=== PATIENT | female | born 1970 | race Caucasian/White ===

== ENCOUNTER 2025-06-04 07:28 | Outpatient (OUT) | payer BC, SELFPAY ==
--- OUTSIDE RECORDS SUMMARY | 2024-04-23 04:15 | XMS_ITS | Continuity of Care Document ---
Author Organization [facility] Address [address] [place] [address] Phone Care Team Providers Care Sed High School Teacher Name Role Phone eJffrey Fountain Unavailable Unavailable Procedures Procedure Date IMMUNIZATION ADMIN Smallpox And Monkeypox Vaccine .05 ML Oc t IMMUNIZATION ADMIN Smallpox And Monkeypox Vaccine .05 ML Se p IMMUNIZATION ADMIN Zoster Vaccine, Recombinant,subunit IMMUNIZATION ADMIN Zoster Vaccine, Recombinant,subunit IMMUNIZATION ADMIN, EACH ADD TYPHOID VACCINE, IM IMMUNIZATION ADMIN POLIOVIRUS, IPV, SC/IM UDS Exempt IMMUNIZATION ADMIN TDAP VACCINE >7 IM UDS Exempt IMMUNIZATION ADMIN TYPHOID VACCINE, IM IMMUNIZATION ADMIN TYPHOID VACCINE, IM Advance Directives Directive Yes / No Effective Date File Name No Information Encounters Encounter Description Practice Location Reason(s) For Visit Diagnoses Date Provider Providers Copied on Encounter [facility], [address], [place], [id number], [place] tel:[phone] [facility] No Information Trisha Brown. [address] [place] [address], [id number], [place]. tel:[phone] [facility], [address], [place], [id number], [place] tel:[phone] [facility] No Information Viscjose e Brown. [address], [place], [id number], [place]. tel:[phone] [facility], [address] [facility] [place], [id number], [place] tel:[phone] [facility] No Information Viscjose e Brown. [address], [place], [id number], [place]. tel:[phone] [facility], [address], [place], [id number], [place] tel:[phone] [facility] No Information Trisha Brown. [address], [place], [id number], [place]. tel:[phone] [facility], [address], [place], [id number], [place] tel:[phone] [facility] No Information Trisha Brown. [address], [place], [id number], [place]. tel:[phone] [facility], [address], [place], [id number], [place] tel:[phone] [facility] No Information Trisha Brown. [address], [place], [id number], [place]. tel:[phone] [facility], [address], [place], [id number], [place] tel:[phone] [facility] No Information Viscjose e Brown. [address], [place], [id number], [place]. tel:[phone] Family History Family Member Type Diagnosis Age At Onset No Information Immunizations Vaccine Date Status Comments MPOX administered Source: New Imm unization Record MPOX administered Source: New Imm unization Record Zoster recombinant subunit, preservative free administered Source: New Immuniza tion Record Zoster recombinant subunit, preservative free administered Source: New Immuniza tion Record Typhoid administered Source: New Imm unization Record IPV administered Source: New Imm unization Record Tdap (Boostrix) administered Source: New Immunization Record Typhim Vi administered Source: New Imm unization Record Payers Payer name Insurance type Covered alliance party ID Authoriza tion(s) [employer] [id number] [employer] [id number] [employer] [id number] [employer] [id number] [employer] [id number] [employer] [id number] [employer] [id number] [employer] [id number] Social History Type Description Quantity Date Captured Comments Alcohol Use Details Unknown Caffeine Use Details Unknown Tobacco Use Status No Information Smoking Status No Information Sex Female Sexual Orientation Straight or heterosexual Gender Identity Female Chief Complaint And Reason For Visit No Information Reason For Referral Reason For Referral No Information Plan Of Treatment Date Type Action Status Goal Colonoscopy. Due on due Goal Lipid panel. Due on due Goal Tdap due Goal Zoster vaccine (2nd) due Goal Hepatitis C screening. Due o n due Goal Tdap Vaccine. Due on 2028 due Goal Unhealthy drug use screening . Due on due Goal Zoster vaccine (1st) due Goal CT-Colonography. Due on due Goal HPV. Due on due Goal Depression screening. Due on due Goal Hep A. Due on du e Goal FIT. Due on due Goal FOBT. Due on due Goal Influenza vaccine. Due on Oc due Goal FIT-DNA. Due on due Goal Mammogram. Due on due Goal PRAPARE ASSESSMENT. Due on O due Goal FIT. Due on due Goal Depression screening. Due on due Goal FOBT. Due on due Goal Tdap Vaccine. Due on 2028 due Goal Mammogram. Due on due Goal PRAPARE ASSESSMENT. Due on S due Goal CT-Colonography. Due on due Goal Zoster vaccine (1st) due Goal HPV. Due on due Goal Influenza vaccine. Due on Se due Goal Unhealthy drug use screening . Due on due Goal Lipid panel. Due on due Goal Colonoscopy. Due on due Goal FIT-DNA. Due on due Goal Hep A. Due on du e Goal Tdap due Goal Zoster vaccine (2nd) due Goal Hepatitis C screening. Due o n due History Of Present Illness Encounter Date Complaint History Of Prese nt Illness No Information Functional Status Date Functional Assessmen t No Information Instructions Date Instruction Additional Infor mation No Information Assessments Type Assessment Date No Information Patient Care Teams Name Effective Dates (start - stop) Status Members No Information
--- OUTSIDE RECORDS SUMMARY | 2025-05-29 08:45 | XMS_ITS ---
Author Organization [email or web address] Address [address] [address], [place] [address] Care Team Providers Care Beverage Host Name Role Phone Elia Marin Unavailable [phone] Allergies No Known Allergies REASON FOR VISIT Left Foot Pain Medications Medication SIG (Take, Route, Frequency, Duration) Notes Start Date End Date Status Motrin 5914YuwjmhLwzmntogghn19/20/2025ActiveVitamin D35Active Social History Section Notes: Works at [employer] Nonsmoker Encounters Encounter Location Date Provider Diagnosis [facility] [address] [address], [place] [address] 05/29/2025 Elia Marin Nondisplaced fracture of navicular [scaphoid] of left foot, initial encounter for closed fracture S92.255A ; Spontaneous rupture of flexor tendons, left ankle and foot M66.372 and Contusion of left foot, initial encounter S90.32XA Assessments Encounter Date Diagnosis (ICD Code) Assessment Notes Treatment Notes Treatment Clinical Notes Section Notes 05/29/2025 Nondisplaced fractur e of navicular [scaphoid] of left foot, initial encounter for closed fracture (ICD-10 - S92.255A) Imani was seen and evalutated. She had a traumatic event 2.5 weeks ago and has had debilitating pain since. Her xrays obtained at urgent care were negative for fracture however there is a high levelof concern for occult navicular fracture or posterior tibial tendon tear. I ordered an MRI of left ankle without contrast. I recommended she remain off of work to prevent further damage and pain until the MRI is obtained. I also ordered a CAM boot which will provide stability and reduce pain allowing her to perform ADLs safely and comfortably. She will need the CAM boot for up to 6 months. She will f/u after MRI is obtained 05/29/2025Spontaneous rupture of flexor tendons, left ankle and foot (ICD-10 - M66.372)05/29/2025ontusion of left foot, initial encounter (ICD-10 - S90.32XA) Plan Of Treatment Treatment Notes Assessment Notes Nondisplaced fracture of jac icular [scaphoid] of left foot, initial encounter for closed fracture Imani was seen and evalutated. She had a traumatic event 2.5 weeks ago and has had debilitating pain since. Her xrays obtained at urgent care were negative for fracture however there is a high level of concern for occult navicular fracture or posterior tibial tendon tear. I ordered an MRI of left ankle without contrast. I recommended she remain off of work to prevent further damage and pain until the MRI is obtained. I also ordered a CAM boot which will provide stability and reduce pain allowing her to perform ADLs safely and comfortably. She will need the CAM boot for up to 6 months. She will f/u after MRI is obtained Next Appt Details Follow Up: after MRI, Reason : Provider Name:Elia harrell, 06/13/2025 09:30:00 AM, [address], [address], [place], [address], History and Physical Notes * HPI (History of Present Illness) CategorySub-CategoryDetailNotesCategory NotesMichael is a pleasant 55 year old female who had an injury on 05/11/25 when a dog tripped her causingsevere left hindfoot/ankle pain. She went to urgent care and xrays were taken. The images were not available for my review however the report states no acute fracture visualized. She has been weight bearing but with substantial pain and limitations despite icing, rest and ibuprofen. She points to the medial ankle and navicular as point of max tenderness. Examination CategorySub-CategoryDetailNotesCategory NotesGeneral Examination Skin: Skin intact. No sign of infection Neuro: LTS intact to plantar and dorsal foot. Negative tinel's sign Vasc: pedal pulses are palpable. No calf pain on squeeze. Swelling and bruising noted to medial ankle and in tarsal tunnel MSK: POP over the dorsal navicular and navicular tuberosity. Stength on inversion is guarded and causes pain. Progress Notes * Triny GARCIADOB:[birth year] (55 yo F)Acc No.[id number]:05/29/2025 New Patient Patient: Triny Mejia :?Elia Marin, DPMDOB:1970???Age:55 Y ???Sex:FemaleDate:05/29/2025Phone:Address:[address] [place] [address], [address] [address] Subjective: * Chief Complaints: * L eft Foot Pain * HPI: ???Ankle:?Imani is a pleasant 55 year old female who had an injury on 05/11/25 when a dog tripped her causingsevere left hindfoot/ankle pain. She went to urgent care and xrays were taken. The images were not available for my review however the report states no acute fracture visualized. She has been weight bearing but with substantial pain and limitations despite icing, rest and ibuprofen. She points to the medial ankle and navicular as point of max tenderness. * ROS: ???General / Constitutional: Patient denies change in appetite, chills, fatigue, fever. Allergy / Immunology: Patient denies blistering skin, cough, congestion, itching, rash. Endocrine: Patient denies cold intolerance, excessive sweating, excessive thirst, frequent urination, hair loss. Respiratory: Patient denies chest pain, cough, pain with inspiration, shortness of breath. Cardiovascular: Patient denies chest pain, claudication, dyspnea on exertion, palpitations. Gastrointestinal: Patient denies abdominal pain, nausea, vomiting. Hematology: Patient denies bleeding problems, anemia. Peripheral Vascular: Patient denies absent pulses in feet, blood clots in legs, cold extremities, pain / cramping in legs after exertion. Skin: Patient denies changing moles, hair changes, keloid formation, nail changes, ulcerations. Neurologic: Patient denies tingling / numbness, stroke, paralysis, loss of use of extremity. * Medical History: Thyroid Issues Medical History Verified * Surgical History: Bilateral Bunionectomy 1987? ? Partial Hysterectomy ? Left transaxillary 1st rib resection ? Left Plantar Fasciotomy `? Surgical History verified.? * Family History: F ather: alive. M other: alive. F amily History Verified.. N on-Contributory..? * Social History: Social History Verified. ???Works at [employer] Nonsmoker. * Medications: T akingMotrin Ashwagandha Vitamin D3 Medication List reviewed and reconciled with the patientTaking Zaki Taking Ashwagandha Taking Vitamin D3 Medication List reviewed and reconciled with the patient * Allergies: N .K.D.A.yesAllergies Verified. Objective: * Examination: ???General Examination: ???Skin: Skin intact. No sign of infection Neuro: LTS intact to plantar and dorsal foot. Negative tinel's sign Vasc: pedal pulses are palpable. No calf pain on squeeze. Swelling and bruising noted to medial ankle and in tarsal tunnel MSK: POP over the dorsal navicular and navicular tuberosity. Stength on inversion is guarded and causes pain. Assessment: * Assessment: 1.?Nondisplaced fracture of navicular [scaphoid] of left foot, initial encounter for closed fracture - S92.255A (Primary)???2.?Spontaneous rupture of flexor tendons, left ankle and foot - M66.372???3.?Contusion of left foot, initial encounter - S90.32XA ?? Plan: * Treatment: Notes: Imani was seen and evalutated. She had a traumatic event 2.5 weeks ago and has had debilitating pain since. Her xrays obtained at urgent care were negative for fracture however there is a high level of concern for occult navicular fracture or posterior tibial tendon tear. I ordered an MRI of left ankle without contrast. I recommended she remain off of work to prevent further damage and pain until the MRI is obtained. I also ordered a CAM boot which will provide stability and reduce pain allowing her to perform ADLs safely and comfortably. She will need the CAM boot for up to 6 months. She will f/u after MRI is obtained?? * Follow Up: a [facility] MRI Billing Information: * Visit Code: 48897 Office Visit, New Pt., Level 3. * Procedure Codes: * Sign off status: Completed* Addendum: * true * Provider: Consuelo Marin DPM Date: 07/29/2024 Generated for Printing/Faxing/eTransmitting on:?06/04/2025 07:37 AM EST
--- OUTSIDE RECORDS SUMMARY | 2025-06-04 07:38 | XMS_ITS | Clinical Summary ---
Author Organization [facility] Address [address] [place] [place] [address] Care Team Providers Care Table Games Dealer Name Role Phone Margi Damon MD Primary Care Provider [phone] Allergies No known active allergies Medications MedicationSigDispense QuantityRefillsLast FilledStart DateEnd DateStatus cholecalciferol (Vitamin D-3) 50 MCG (1999 UT) capsule 1 capsule 1 (one) time each day at the same timeActive ibuprofen 800 MG tablet Take 800 mg by mouth every 6 (six) hours if kgxooq405Active Active Problems No known active problems Encounters DateTypeDepartmentCare LyftQngqmbzymym80/23/2025 9:20 AM EDTOffice Visit [facility] [address] [facility] [address] [place] [address] Brenna Estevez MD Melanocytic nevus of face, other location (Primary Dx); Multiple benign melanocytic nevi of upper and lower extremities and trunk; Lentigines; Dermatofibroma; Wbgwgrqaqrwb76/23/2025amboo flowsheet [facility] [address] [place] [address] Brenna Estevez MD 05/01/2025Travelfrom Last 3 Months Family History Medical HistoryRelationNameCommentsNo Known ProblemsDaughteradopted from [place] HypertensionMotherNo Known ProblemsSonRelationNameStatusCommentsBrother1 brother Daughter1 daughtersFatherunknownMotherAliveSon2 sons Social History Tobacco UseTypesPacks/DayYears UsedDateSmoking Tobacco: NeverSmokeless Tobacco: Never Tobacco Cessation:Counseling Given: Not Answered Alcohol UseStandard Drinks/WeekCommentsYes1 (1 standard drink = 0.6 oz pure alcohol)caffeine intake : 2- cups coffee dailyEducationAnswerDate RecordedWhat is the highest level of school you have completed or the highest degree you have received?Some college, no iortxk7210/06/2023CommentsUnknownSex and Gender InformationValueDate RecordedSex Assigned at BirthNot on fileLegal SexFemale 09/21/2022 7:06 PM EDTGender IdentityNot on fileSexual OrientationNot on file Last Filed Vital Signs Vital SignReadingTime TakenCommentsBlood Mrsznjeo414/70010/22/2024 8:27 AM EDT Pulse--Temperature--Respiratory Rate--Oxygen Saturation--Inhaled Oxygen Concentration--Arcfcm69.3 kg (144 lb)10/22/2024 8:27 AM DLMKojwaz338.5 cm (5' 2 )09/19/2022 12:00 PM EDTBody Mass Index26.34009/19/2022 12:00 PM EDT Plan of Treatment DateTypeDepartmentCare Team (Latest Contact Info)Ryyrogwtgzz07/21/2026 8:30 AM EDTOffice Visit [facility] Dimitri MENENDEZ [address] [address] Phyllis Rose DO [address] [address] Health MaintenanceDue DateLast DoneCommentsCT Rfxcdeybarze1970FIT 1970FOBT03/18/19704063Ahvxzdwjfdhir1970Pap Smear1991Cervical Cancer Pblwqgtyz31/09/2000HPV/Krnyyf6503/18/2000COVID-19 Vaccine ( season), 05/10/2021, 08/11/2020, Additional history exists Influenza Vaccine (#1), 04/13/2022, 04/20/2021, Additional history fdezijUszwdujnb94/06/121656/12/2024, 09/26/2022, 08/23/2021, Additional history wiufibBaerozlomya96/09/202612/03/2016Colorectal Cancer Screening 11/06/2027FIT-DNA804/, 10/11/2021neumococcal Vaccine: Pediatrics (0 to 5 Years) and At-Risk Patients (6 to 64 Years)Aged OutNo longer eligible based on patient's age to complete this topic Procedures Procedure NamePriorityDate/TimeAssociated DiagnosisCommentsBI MAMMOGRAM SCREENING TOMOSYNTHESIS PCXCBQZRMVxaqsby87/06/2025 2:26 PM EDT Other screening mammogram from Last 3 Months or Most Recently Relevant to Health Maintenance Results * Bilateral screening mammogram with tomosynthesis (11/12/2024 2:26 PM EDT) Narrative Authorizing ProviderResult TypeResult StatusMona Marcos Rose [facility] BI PROCEDURESFinal Result from Last 3 Months or Most Recently Relevant to Health Maintenance Insurance Care Teams Team MemberRelationshipSpecialtyStart DateEnd Date Margi Damon MD [address] [place] [address] [facility]10/05/23
--- OUTSIDE RECORDS SUMMARY | 2025-06-04 07:38 | XMS_ITS | Patient Health Record ---
Author Organization [facility] Address [address] [address], [place] [address] Care Team Providers Care Surveillance Supervisor Name Role Phone Elia Marin Unavailable [phone] Allergies No Known Allergies Reason For Referral No Information Medications Medication SIG (Take, Route, Frequency, Duration) Notes Start Date End Date Status Motrin 7926BnyvgoErovofgdsqy37/20/2025ActiveVitamin D35Active Social History Section Notes: Works at [employer] Nonsmoker Encounters Encounter Location Date Provider Diagnosis [facility] [address] [address], [place] [address] 05/29/2025 Elia Marin Nondisplaced fracture of navicular [scaphoid] of left foot, initial encounter for closed fracture S92.255A ; Spontaneous rupture of flexor tendons, left ankle and foot M66.372 and Contusion of left foot, initial encounter S90.32XA Assessments Encounter Date Diagnosis (ICD Code) Assessment Notes Treatment Notes Treatment Clinical Notes Section Notes 05/29/2025 Spontaneous rupture of flexor tendons, left ankle and foot (ICD-10 - M66.372) 05/29/2025Nondisplaced fracture of navicular [scaphoid] of left foot, [...] She will f/u after MRI is obtained 5Contusion of left foot, initial encounter (ICD-10 - S90.32XA) Plan Of Treatment Next Appt Details Provider Name:Elia WARREN Presley harrell, 06/13/2025 09:30:00 AM, [address] [facility], [address], [place], [address], Insurance Providers Payer Name Payer Address Payer Phone Subscriber Number Group Number Insured Name Patient Relationship to Insured Coverage Start Date Coverage End Date [facility] [address] [place] [phone] [id number] Spencer Griffin - patient is the spouse of the insured Medical (General) History Medical History History ICD Code Thyroid Issues Surgical History Surgery Date(Month/Year) Bilateral Bunionectomy 1987 Partial HysterectomyLeft transaxillary 1st rib resectionLeft Plantar Fasciotomy`
--- OUTSIDE RECORDS SUMMARY | 2025-06-04 07:38 | XMS_ITS | Clinical Summary ---
Author Organization [facility] Address [address] [place] [address] Care Team Providers Care Media Services Director Name Role Phone Eros Butler MD Primary Care Provider Allergies No known active allergies Medications MedicationSigDispense QuantityRefillsLast FilledStart DateEnd DateStatus CALCIUM + D 600 MG TABLET take one a gqy538Active Cholecalciferol, Vitamin D3, (VITAMIN D) 1,000 unit ORAL Tab Indications:Myalgia and myositis,Wrist pain,Shoulder pain, leftTake one(1) tablet daily.ctive Black Cohosh 40 mg tab Take by mouth once daily.Active meloxicam (MOBIC) 15 mg tablet Take 1 tablet by mouth once daily. 30 tablet Active Additional Information Patient not taking.Reported on 03/21/2018 diosmin complex no.1 (VASCULERA) 630 mg tab Take 1 tablet by mouth twice daily. 60 tablet Active Active Problems ProblemNoted DateDiagnosed DatePain in right foot05/18/2017Plantar fasciitis 05/18/2017Instability of right foot joint05/18/2017Synovitis of wrist12/15/2011 Radial nerve qggszy0012/15/2011Scapholunate ligament injury with no instability 03/03/20113811Jmehhcluhqg48/17/2009Throat pain09/23/2008Esophageal ztfeuy3809/23/2008 Voice and resonance disorder, qapinhszrbd27/23/2008Goiter, fulnysuuxhs31/09/2007 Family History Medical HistoryRelationCommentsDiabetesMaternal GrandmotherHeartMaternal GrandmotherThyroidMotherGoiter - subtotal thyroidectomy - no cancerCancer Paternal GrandmotherPancreatic (?)RelationStatusCommentsMaternal Grandmother MotherPaternal Grandmother Social History Tobacco UseTypesPacks/DayYears UsedDateSmoking Tobacco: NeverSmokeless Tobacco: NeverAlcohol UseStandard Drinks/WeekCommentsNo0 (1 standard drink = 0.6 oz pure alcohol)RarelyArea Deprivation IndexAnswerDate RecordedNational Score (1-100), lower number is lower riskNot on file06/16/2020State Score (1-10), lower number is lower riskNot on file06/16/2020Data from: https://www.neighborhoodatlas.medicine.[facility].edu/. Last address used for calculationNot on file06/16/2020CommentsNoSex and Gender Information ValueDate RecordedSex Assigned at BirthNot on fileLegal LsuSclmpd05/02/2012 9:28 AM ESTGender IdentityNot on fileSexual OrientationNot on fileOccupationIndustry Job Start DateJob End DateRNNot on fileNot on fileNot on file Last Filed Vital Signs Vital SignReadingTime TakenCommentsBlood Roptquef336/6705/04/2016 9:52 AM EDT Lzvfu927305/04/2016 9:52 AM LWUXolcjwcinwa16.5 ??C (97.7 ??F)07/06/2011 6:30 AM ESTRespiratory Sgvw678308/11/2011 9:49 AM ESTOxygen Gsavdvkoni48%07/06/2011 6:30 AM ESTInhaled Oxygen Concentration--Pevypx56.5 kg (135 lb 8 oz)05/04/2016 9:52 AM RSSGtyccp721.3 cm (5' 1.93 )05/04/2016 9:52 AM EDTBody Mass Index24.84 05/04/2016 9:52 AM EDT Plan of Treatment Health MaintenanceDue DateLast DoneCommentsAnxiety Fkfvorxxv56/09/1988Depression Gzmslpcxa29/09/1988HIV Qxhalgsos28/09/1988Hepatitis C Ayjingquq39/09/1988 Hepatitis B Vaccine (1 of 3 - 19+ 3-dose series)1989Cervical Cancer Vtgwbdsob51/09/1991Mammogram Enzsoibdz12/09/2010CT Ywjlrdwhtwxg43/09/2015 Cologuard (FIT-DNA)03/18/20157635Vzhyskcrrom41/09/2015Colorectal Cancer Screening 2015Diabetes Zgqzwnmph56Fecal Occult Blood2015 Lipid Fvusscbqk32/09/5387Slwolfcwpmsyl96/09/2015Pneumococcal Vaccine: 50+ (1 of 1 - PCV)2020Shingrix Vaccine (1 of 2)2020Covid-19 Vaccine (1 - 2024- season)2025Influenza Vaccine (#1), 04/10/2017, 04/28/2016, Additional history existsDTaP,Tdap,Td Vaccine (2 - Td or Tdap) Procedures Procedure NamePriorityDate/TimeAssociated DiagnosisCommentsBASIC METABOLIC PANEL Rvvxvrq6206/15/2011 11:00 AM EST Brachial plexus lesions from Last 3 Months or Most Recently Relevant to Health Maintenance Results * (ABNORMAL) BASIC METABOLIC PNL (06/15/2011 11:00 AM EST)ComponentValueRef RangeTest MethodAnalysis TimePerformed AtPathologist CmoqmxplrPpaykmx0485 - 100 mg/dLMER[facility] ZKUJIVUHUCJXM730 - 25 mg/dLMERCY [facility]ALTH ST[facility] LABORATORYCreatinine0.65(L)0.70 - 1.40 mg/dLMERCY HEALTH ST[facility] UHVHLZGCVBHcrydz509025 - 148 mmol/LCUNIVERSITY [facility] MAIN LABORATORYPotassium 4.33.5 - 5.0 mmol/LCUNIVERSITY [facility]ITALS [facility] MA[facility] VEMRQSKBCOOzkewceu08789 - 110 mmol/L [facility] WUZEGKMMLZZO41931 - 32 mmol/LCUNIVERSITY [facility]IT[facility] MAIN LABORATORYAnion Gap80 - 15 mmol/LCUNIVERSITY H[facility]ITALS [facility] MAIN LABORATORYCalcium9.78.5 - 10.5 mg/dLMERCY HEALTH ST. [facility] LABORATORYeGFR->60[facility] MAIN LABORATORYeGFR-All Other Races>60.[facility] LABORATORY Comment: eGFR (Estimated GFR) Units of measure: mL/min/1.73 meters squared eGFR is derived from the reexpressed MDRD Study equation using the following parameters: serum creatinine, age, gender and race. The creatinine assay has been calibrated to be traceable to IDMS. An eGFR <60 mL/min/1.73m2 for >3 months is consistent with chronic kidney disease. Refer to KDOQI guidelines for clinical interpretation. Specimen (Source)Anatomical Location / LateralityCollection Method / Volume Collection TimeReceived TimeBlood specimen (specimen)BLOOD SPECIMEN / Unknown 06/15/2011 11:00 AM EST06/15/2011 11:03 AM EST Narrative Authorizing ProviderResult TypeResult StatusDaniel G ClairLABORATORYFinal Result Performing OrganizationAddressCity/State/ZIP CodePhone Number [facility] LABORATORY [address] [place] [address] from Last 3 Months or Most Recently Relevant to Health Maintenance Insurance Care Teams Team MemberRelationshipSpecialtyStart DateEnd Date Eros Butler MD [address] [place] [phone] PCP - GeneralFamily Medicine12/31/10
--- NOTE | 2025-06-04 07:47 | MR_ITS ---
[address] [address] Patient Name: FRANSISCO GARCIA MRN: [id number] date: 1970 Sex: F Assigned Patient Location: MRI Current Patient Location: MRI Accession/Order Number: [id number] Exam Date: 06/04/2025 08:00 Report Date: 06/04/2025 13:22 At the request of: DESI ONEILL DPM Procedure: MR ankle LT wo con MR ankle LT wo con 06/04/2025 8:55 AM SIGNS AND SYMPTOMS: Left ankle pain after fall, suspected peroneal tendon tear/navicular fracture PROTOCOL: Multiplanar multisequence MR images of the left ankle without IV contrast COMPARISON: None FINDINGS: Alignment: Normal. Fluid: Tibiotalar: No joint effusion. Subtalar: No joint effusion. Medial: Medial malleolus: Intact. Tendons: Posterior tibial tendon: Intact. Flexor digitorum longus: Intact. Flexor hallucis longus: Intact. Ligaments: Deltoid ligament complex - superficial: Intact. Deltoid ligament complex - deep: Intact. Spring (plantar calcaneo-navicular) ligament: Intact. Lateral: Lateral malleolus: Normal. Retromalleolar groove: Normal. Tendons: Peroneus longus: Intact. Peroneus brevis: Intact. Peroneal retinaculum: Intact. Ligaments: Anterior inferior tibiofibular (syndesmosis): Intact. Posterior inferior tibiofibular (syndesmosis): Intact. Anterior talofibular ligament: Intact. Calcaneofibular ligament: Intact. Posterior talofibular ligament: Intact. Posterior: Posterior talus: Normal. Intermalleolar ligament: Intact. Achilles tendon: Intact. Plantar fascia: Intact. Anterior: Tendons: Anterior tibial tendon: Intact. Extensor hallucis longus: Intact. Extensor digitorum longus: Intact. Tibiotalar joint: Intact. Subtalar joint: Intact. Bones (other than subarticular marrow): There is a relatively nondisplaced transversely oriented fracture along the medial margin of the navicular with extensive marrow edema. Lesser degrees of marrow edema are noted in the anterior calcaneal process and at the base of the talus adjacent to the subtalar joint. These may represent contusions. If there is ongoing clinical concern for additional fractures, follow-up with CT may be helpful. Muscles: Normal Tarsal tunnel: Normal Sinus tarsi: Normal. MR/MR ankle LT wo con IMPRESSION: There is a relatively nondisplaced transversely oriented fracture along the medial margin of the navicular with extensive marrow edema. Lesser degrees of marrow edema are noted in the anterior calcaneal process and at the base of the talus adjacent to the subtalar joint. These may represent contusions. If there is ongoing clinical concern for additional fractures, follow-up with CT may be helpful. The soft tissues are grossly intact. Impression dictated by: Evan Davis M.D. 06/04/2025 1:22 PM Dictation Location: [place] [address] Electronically authenticated by: [id number] Y Date: 06/04/2025 13:22
== END 2025-06-04 07:29 | disposition home or self-care (01) ==
PROVIDERS: Family Provider Urology; PCP Family Medicine; Visit Provider Podiatrist Foot & Ankle Surgery
DX: M25.572 Pain in left ankle and joints of left foot (principal); S92.255A Nondisplaced fracture of navicular [scaphoid] of left foot, initial encounter for closed fracture
CPT/HCPCS: 73721

== ENCOUNTER 2025-06-30 10:02 | Outpatient (OUT) | payer BC, SELFPAY ==
--- OUTSIDE RECORDS SUMMARY | 2025-06-30 10:07 | XMS_ITS | Clinical Summary ---
Author Organization [facility] Address [address] [place] [address] Care Team Providers Care Hog Dropper Name Role Phone Eros Butler MD Primary Care Provider Allergies No known active allergies Medications MedicationSigDispense QuantityRefillsLast FilledStart DateEnd DateStatus CALCIUM + D 600 MG TABLET take one a equ994Active Cholecalciferol, Vitamin D3, (VITAMIN D) 1,000 unit [...] right foot joint05/18/2017Synovitis of wrist12/15/2011 Radial nerve xsoupf7912/15/2011Scapholunate ligament injury with no instability 03/03/20112386Nobqipazfoi92/17/2009Throat pain09/23/2008Esophageal jlmrmo7409/23/2008 Voice and resonance disorder, xutalcanipw75/23/2008Goiter, kihscgadkqf58/09/2007 Family History Medical HistoryRelationCommentsDiabetesMaternal GrandmotherHeartMaternal GrandmotherThyroidMotherGoiter - subtotal thyroidectomy - no cancerCancer Paternal GrandmotherPancreatic (?)RelationStatusCommentsMaternal Grandmother MotherPaternal Grandmother Social History Tobacco UseTypesPacks/DayYears UsedDateSmoking Tobacco: NeverSmokeless Tobacco: NeverAlcohol UseStandard Drinks/WeekCommentsNo0 (1 standard drink = 0.6 oz pure alcohol)RarelyArea Deprivation IndexAnswerDate RecordedNational Score (1-100), lower number is lower riskNot on file06/16/2020State Score (1-10), lower number is lower riskNot on file06/16/2020Data from: https://www.neighborhoodatlas.medicine.[facility].edu/. Last address used for calculationNot on file06/16/2020CommentsNoSex and Gender Information ValueDate RecordedSex Assigned at BirthNot on fileLegal WieIaxlpw27/02/2012 9:28 AM ESTGender IdentityNot on fileSexual OrientationNot on fileOccupationIndustry Job Start DateJob End DateRNNot on fileNot on fileNot on file Last Filed Vital Signs Vital SignReadingTime TakenCommentsBlood Smcpwzdc719/6705/04/2016 9:52 AM EDT Iaymu773605/04/2016 9:52 AM ICSTqjnbemqfbt92.5 ??C (97.7 ??F)07/06/2011 6:30 AM ESTRespiratory Qbjy015508/11/2011 9:49 AM ESTOxygen Xjreabivgv95%07/06/2011 6:30 AM ESTInhaled Oxygen Concentration--Ppxhok91.5 kg (135 lb 8 oz)05/04/2016 9:52 AM UBUVmxdkk739.3 cm (5' 1.93 )05/04/2016 9:52 AM EDTBody Mass Index24.84 05/04/2016 9:52 AM EDT Plan of Treatment Health MaintenanceDue DateLast DoneCommentsAnxiety Hrackuhqu18/09/1988Depression Cktbruquk68/09/1988HIV Lqqnyufcb84/09/1988Hepatitis C Mbvuoqufx51/09/1988 Hepatitis B Vaccine (1 of 3 - 19+ 3-dose series)1989Cervical Cancer Henmthrob90/09/1991Mammogram Uekeqjagc35/09/2010CT Krxpauvsluzc34/09/2015 Cologuard (FIT-DNA)03/18/20158671Jhemugohsbg05/09/2015Colorectal Cancer Screening 2015Diabetes Dgtfazrpq72Fecal Occult Blood2015 Lipid Jbnkaodix42/09/4671Lgyeitjavdret70/09/2015Pneumococcal Vaccine: 50+ (1 of 1 - PCV)2020Shingrix Vaccine (1 of 2)2020Covid-19 Vaccine (1 - 2024- season)2025Influenza Vaccine (#1), 04/10/2017, 04/28/2016, Additional history existsDTaP,Tdap,Td Vaccine (2 - Td or Tdap) RSV Vaccine (1 - 1-dose 75+ series)2045 Procedures Procedure NamePriorityDate/TimeAssociated DiagnosisCommentsBASIC METABOLIC PANEL Iaiijth0106/15/2011 11:00 AM EST Brachial plexus lesions from Last 3 Months or Most Recently Relevant to Health Maintenance Results * (ABNORMAL) BASIC METABOLIC PNL (06/15/2011 11:00 AM EST)ComponentValueRef RangeTest MethodAnalysis TimePerformed AtPathologist GevaoqstoWtnyllz1322 - 100 mg/dLMARION H[facility]IN LLLEFEKYKVUTV382 - 25 mg/dLMAR[facility] LABORATORYCreatinine0.65(L)0.70 - 1.40 mg/dLMARION HOS[facility]ITAL [facility] MGRUWJLEYVRsorvx696729 - 148 mmol/LCK[facility] LABORATORYPotassium 4.33.5 - 5.0 mmol/LCKINDRED [facility] IMLMETLKGTImlcnexe46642 - 110 mmol/L [facility] NBJNYDUGTUBH37528 - 32 mmol/LCKINDRED [facility] MAIN LABORATORYAnion Gap80 - 15 mmol/LCKINDRED [facility]OSPITAL [facility] MA[facility] LABORATORYCalcium9.78.5 - 10.5 mg/dLMARION [facility]OSPITAL [facility]IN LABORATORYeGFR->60[facility] LABORATORYeGFR-All Other Races>60.[facility] Comment: eGFR (Estimated GFR) Units [...] G ClairLABORATORYFinal Result Performing OrganizationAddressCity/State/ZIP CodePhone Number [facility] [address] [place] [address] from Last 3 Months or Most Recently Relevant to Health Maintenance Insurance Care Teams Team MemberRelationshipSpecialtyStart DateEnd Date Eros Butler MD [address] [place] [address] PCP - GeneralFamily Medicine12/31/10
--- OUTSIDE RECORDS SUMMARY | 2025-06-30 10:07 | XMS_ITS | Patient Health Record ---
Author Organization [facility] Address [address] [place] [address], [facility] [place] [address] Care Team Providers Care Hostess Party Sales Representative Name Role Phone Elia Marin Unavailable [phone] Allergies No Known Allergies Reason For Referral No Information Medications Medication SIG (Take, Route, Frequency, Duration) Notes Start Date End Date Status Motrin 0031VvgqkwDadtxncfqpm38/20/2025ActiveVitamin D35Active Social History Section Notes: Works at [employer] Nonsmoker Works at [employer] Nonsmoker Encounters Encounter Location Date Provider Diagnosis [facility] [employer] [place] [address], [place] [address] 05/29/2025 Elia Marin Nondisplaced fracture of navicular [scaphoid] of left foot, initial encounter for closed fracture S92.255A ; Spontaneous rupture of flexor tendons, left ankle and foot M66.372 and Contusion of left foot, initial encounter S90.32XA [employer] [place] [address], [facility] [place] [address] 06/13/2025 Elia Marin Nondisplaced fracture of navicular [scaphoid] of left foot, initial encounter for closed fracture S92.255A and Contusion of left foot, initial encounter [...] She will f/u after MRI is obtained 06/13/2025ontusion of left foot, initial encounter (ICD-10 - S90.32XA) 06/13/2025Nondisplaced fracture of navicular [scaphoid] of left foot, initial encounter for closed fracture (ICD-10 - S92.255A) MRI reviewed with her and shows a nondisplaced fracture of the navicular. There is also bone marrowedema within the anterior process of calcaneus which likely represents contusion. I discussed surgical and nonsurgical treatment and she would like to continue nonsurgical treatment with immobilization in CAM boot. She was educated that navicular fractures can be very slow to heal. She would like to return to work and she may on sedentary/desk duty as long as she can be in her CAM boot and limit weight bearing to as little as possible. f/u in 2-3 weeks with a f/u xray 5Contusion of left foot, initial encounter (ICD-10 - S90.32XA) Plan Of Treatment Next Appt Details Provider Name:Elia harrell, 06/30/2025 10:45:00 AM, [address] [facility], [address], [address], [place], [address], Insurance Providers Payer Name Payer Address Payer Phone Subscriber Number Group Number Insured Name Patient Relationship to Insured Coverage Start Date Coverage End Date [facility] [address] [place] [phone] [id number] Spencer Griffin - patient is the spouse of the insured Medical (General) History Medical History History ICD Code Thyroid Issues Surgical History Surgery Date(Month/Year) Bilateral Bunionectomy 1987 Partial HysterectomyLeft transaxillary 1st rib resectionLeft Plantar Fasciotomy
--- OUTSIDE RECORDS SUMMARY | 2025-06-30 10:07 | XMS_ITS | Clinical Summary ---
Author Organization [facility] Address [address] [facility] [place] [address] Care Team Providers Care Before And After School Daycare Worker Name Role Phone Margi Damon MD Primary Care Provider [phone] Allergies No known active allergies Medications MedicationSigDispense QuantityRefillsLast FilledStart DateEnd DateStatus cholecalciferol (Vitamin D-3) 50 MCG (1999 UT) capsule 1 capsule 1 (one) time each day at the same timeActive ibuprofen 800 MG tablet Take 800 mg by mouth every 6 (six) hours if ivjapv625Active Active Problems No known active problems Encounters DateTypeDepartmentCare EvjqPqdvapwwcil59/23/2025 9:20 AM EDTOffice Visit [facility] [address] [facility] [address] [place] [address] Brenna Estevez MD Melanocytic nevus of face, other location (Primary Dx); Multiple benign melanocytic nevi of upper and lower extremities and trunk; Lentigines; Dermatofibroma; Ewtaetepityk10/23/2025amboo flowsheet [facility] [address] [facility] [address] [place] [address] Brenna Estevez MD 05/01/2025Travelfrom Last 3 Months Family History Medical HistoryRelationNameCommentsNo Known ProblemsDaughteradopted from [place] HypertensionMotherNo Known ProblemsSonRelationNameStatusCommentsBrother1 brother Daughter1 daughtersFatherunknownMotherAliveSon2 sons Social History Tobacco UseTypesPacks/DayYears UsedDateSmoking Tobacco: NeverSmokeless Tobacco: Never Tobacco Cessation:Counseling Given: Not Answered Alcohol UseStandard Drinks/WeekCommentsYes1 (1 standard drink = 0.6 oz pure alcohol)caffeine intake : 2- cups coffee dailyEducationAnswerDate RecordedWhat is the highest level of school you have completed or the highest degree you have received?Some college, no rvfgzc5110/06/2023CommentsUnknownSex and Gender InformationValueDate RecordedSex Assigned at BirthNot on fileLegal SexFemale 09/21/2022 7:06 PM EDTGender IdentityNot on fileSexual OrientationNot on file Last Filed Vital Signs Vital SignReadingTime TakenCommentsBlood Qtymelgw882/70010/22/2024 8:27 AM EDT Pulse--Temperature--Respiratory Rate--Oxygen Saturation--Inhaled Oxygen Concentration--Zslwlp65.3 kg (144 lb)10/22/2024 8:27 AM RIZPxcudi260.5 cm (5' 2 )09/19/2022 12:00 PM EDTBody Mass Index26.34009/19/2022 12:00 PM EDT Plan of Treatment DateTypeDepartmentCare Team (Latest Contact Info)Qfsfmensbky62/21/2026 8:30 AM EDTOffice Visit [facility] Dimitri MENENDEZ [address] [address] Phyllis Rose DO [address] [address] Health MaintenanceDue DateLast DoneCommentsCT Hdyadjxvhlnf1970FIT 1970FOBT03/18/19707586Fqxhmpvibspqi1970Pap Smear1991Cervical Cancer Rusztkguu62/09/2000HPV/Yibkgj6303/18/2000COVID-19 Vaccine ( season), 06/11/2023, 04/27/2022, Additional history exists Influenza Vaccine (#1), 04/13/2022, 04/20/2021, Additional history wzpevgNajdcacvn47/06/368695/12/2024, 09/26/2022, 08/23/2021, Additional history akoyevOqjdygdxhoy53/09/202612/03/2016Colorectal Cancer Screening 11/06/2027FIT-DNA804/, 10/11/2021neumococcal Vaccine: Pediatrics (0 to 5 Years) and At-Risk Patients (6 to 64 Years)Aged OutNo longer eligible based on patient's age to complete this topic Procedures Procedure NamePriorityDate/TimeAssociated DiagnosisCommentsBI MAMMOGRAM SCREENING TOMOSYNTHESIS APZTGVPNDMubjnfb80/06/2025 2:26 PM EDT Other screening mammogram from Last 3 Months or Most Recently Relevant to Health Maintenance Results * Bilateral screening mammogram with tomosynthesis (11/12/2024 2:26 PM EDT) Narrative Authorizing ProviderResult TypeResult StatusMona Marcos Rose [facility] BI PROCEDURESFinal Result from Last 3 Months or Most Recently Relevant to Health Maintenance Insurance Care Teams Team MemberRelationshipSpecialtyStart DateEnd Date Margi Damon MD [address] [place] [address] PCP - [facility]Cle[facility]ky Rehabilitation [facility] Avondalenal Medicine10/05/23
--- NOTE | 2025-06-30 10:09 | XR_ITS ---
[place] [id number] Patient Name: FRANSISCO GARCIA MRN: [id number] date: 1970 Sex: F Assigned Patient Location: [facility] Current Patient Location: [facility] Accession/Order Number: [id number] Exam Date: 06/30/2025 10:18 Report Date: 06/30/2025 11:37 At the request of: DESI ONEILL DPIsha Procedure: XR ankle LT min 3V LEFT ANKLE - 3 views CLINICAL DATA: Follow-up nondisplaced fracture of the navicular COMPARISON: MRI ankle 06/04/2025 COMPARISON: None AP, lateral and oblique views were obtained. The navicular fracture visualized on the recent MRI is not definitely seen on plain film. There is no other fracture or dislocation. There is a small calcaneal spur. There are no significant soft tissue abnormalities. XR/XR ankle LT min 3V IMPRESSION: POORLY DEMONSTRATED NAVICULAR FRACTURE SEEN ON MRI Impression dictated by: Margi Baker M.D. 06/30/2025 11:37 AM Dictation Location: [employer] Electronically authenticated by: [id number] Y Date: 06/30/2025 11:37
== END 2025-06-30 10:03 | disposition home or self-care (01) ==
LOC: RAD 10:04
PROVIDERS: Family Provider Urology; PCP Family Medicine; Visit Provider Podiatrist Foot & Ankle Surgery
DX: S82.892D Other fracture of left lower leg, subsequent encounter for closed fracture with routine healing (principal)
CPT/HCPCS: 73610